=== PATIENT | female | born 1985 | race Caucasian/White ===

== ENCOUNTER 2016-10-02 07:27 | Day surgery (SDC) | payer OTHER ==
[~2016-10-02] VITALS: Ht 165.1 cm; Wt 84.0 kg
[2016-10-02 08:02] VITALS: BP 144/97
[2016-10-02] MEDS ORDERED: NALOXONE 1 MG/ML, 2ML ONE (10:10)
[2016-10-02] MEDS ORDERED: FENTANYL PF 100 MCG/2ML ONE (10:10)
[2016-10-02] MEDS ORDERED: MIDAZOLAM 1 MG/ML, 5ML ONE (10:10)
[2016-10-02] MEDS ORDERED: FLUMAZENIL 0.1 MG/1 ML, 5ML ONE (10:11)
[2016-10-02] MEDS ORDERED: hydrALAzine 20 MG/ML, 1ML ONE (11:05)
== END 2016-10-02 13:00 ==
LOC: OUT 07:27
PROVIDERS: ATTEND Internal Medicine Nephrology
DX: I12.9 Hypertensive chronic kidney disease with stage 1 through stage 4 chronic kidney disease, or unspecified chronic kidney disease (principal); N18.9 Chronic kidney disease, unspecified; N17.9 Acute kidney failure, unspecified
CPT/HCPCS: 36415; 50200; 77012; 85610; 88300; J2250; J3010; 99156; 99157; J2310